=== PATIENT | male | born 1980 | race Caucasian/White ===

== ENCOUNTER 2016-11-21 14:24 | Emergency (ER) | payer MEDICAID, OTHER ==
[2016-11-21 14:55] VITALS: BP 109/67; PULSE 57; RESP 18; TEMP 98.7; O2SAT 97
--- NOTE | 2016-11-21 15:40 | RAD ---
PROCEDURE: Left Knee Radiographs. HISTORY: Pain. COMPARISON: None. FINDINGS: BONES: Normal. No fracture. JOINTS: Normal. No osteoarthritis. JOINT EFFUSION: None. OTHER FINDINGS: None. IMPRESSION: Normal radiographs of the left knee.
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
== END 2016-11-21 16:29 | disposition home or self-care (01) ==
LOC: C.ER 14:24
DX: S80.02XA Contusion of left knee, initial encounter (principal); V09.29XA Pedestrian injured in traffic accident involving other motor vehicles, initial encounter; Y92.488 Other paved roadways as the place of occurrence of the external cause